=== PATIENT | male | born 1970 | race Caucasian/White ===

== ENCOUNTER → 2016-10-02 | Outpatient (CLI) | payer OTHER ==
[~2016-10-02] MED LIST: ASPIRIN 81M81 MG/TA2 PO; CEPHALEXIN500 M1 PO; EPA FISH OIL1000 MG PO; LIPITOR 80MG80 MG PO; LOPRESSOR100 MG PO; VIIBRYD40 MG PO
== END ==
LOC: COL.PUL 07:29
DX: R06.09 Other forms of dyspnea (principal); F17.200 Nicotine dependence, unspecified, uncomplicated

== ENCOUNTER → 2016-12-15 | Outpatient (CLI) | payer OTHER | LOC: BHSO 13:40 | DX: F41.1 Generalized anxiety disorder (principal) | CPT/HCPCS: 90791-AI ==

== ENCOUNTER → 2017-01-15 | Outpatient (CLI) | payer OTHER | LOC: BHSO 13:02 | DX: F41.1 Generalized anxiety disorder (principal) ==

== ENCOUNTER → 2017-02-11 | Outpatient (CLI) | payer BC | LOC: BHSO 09:52 | DX: F31.73 Bipolar disorder, in partial remission, most recent episode manic (principal) ==

== ENCOUNTER → 2017-03-01 | Outpatient (CLI) | payer BC | LOC: BHSO 10:49 | DX: F41.1 Generalized anxiety disorder (principal) ==

== ENCOUNTER → 2017-03-15 | Outpatient (CLI) | payer BC | LOC: BHSO 10:59 | DX: F41.1 Generalized anxiety disorder (principal) ==

== ENCOUNTER → 2017-04-09 | Outpatient (CLI) | payer BC | LOC: BHSO 09:11 | DX: F41.1 Generalized anxiety disorder (principal) | CPT/HCPCS: G0463 ==

== ENCOUNTER 2017-12-22 08:46 | Outpatient (RCR) | payer OTHER | END 2018-03-22 | disposition home or self-care (01) | LOC: WSOH | DX: S30.1XXA Contusion of abdominal wall, initial encounter (principal); W20.8XXA Other cause of strike by thrown, projected or falling object, initial encounter; Y99.0 Civilian activity done for income or pay; F17.210 Nicotine dependence, cigarettes, uncomplicated; Z79.82 Long term (current) use of aspirin; Z79.899 Other long term (current) drug therapy ==

== ENCOUNTER → 2018-11-04 | Outpatient (CLI) | payer BC | LOC: COL.RAD 10:25 | DX: K11.8 Other diseases of salivary glands (principal) ==

== ENCOUNTER → 2018-11-11 | Outpatient (CLI) | payer BC ==
[~2018-11-11] VITALS: Ht 182.9 cm; Wt 121.4 kg
[~2018-11-11] MED LIST changes: +DULERA1 AR1 IH; +LAMICTAL150 MG PO; +WELLBUTRIN SR200 MG PO
[2018-11-11 08:04] VITALS: BP 141/91; PULSE 68
[2018-11-11 09:25] VITALS: BP 154/105; PULSE 65
[2018-11-11 09:35] VITALS: BP 146/103; PULSE 64
[2018-11-11 09:45] VITALS: BP 153/101; PULSE 63
[2018-11-11 09:55] VITALS: BP 143/95; PULSE 61
== END ==
LOC: COL.RAD 07:46
DX: K11.8 Other diseases of salivary glands (principal)

== ENCOUNTER 2018-12-10 20:45 | Emergency (ER) | payer BC ==
[~2018-12-10] VITALS: Ht 182.9 cm; Wt 122.7 kg
[2018-12-10 21:33] LABS: BASO # 0.1 (0.0-0.2); BASO % 0.9 % (0.0-2.0); EOS # 0.1 (0.0-0.7); EOS % 1.1 % (0-4.0); GRAN # 6.8 (1.4-6.5); GRAN % 56.1 % (42.2-75.2); HEMATOCRIT 41.7 % (42.0-52.0); HEMOGLOBIN 14.2 g/dl (13.5-18.0); LYMPH # 3.8 (1.2-3.4); LYMPH % 31.7 % (20.0-51.0); MEAN CELL VOLUME 91 fl (80.0-100.0); MEAN CORPUSCULAR HEMOGLOBIN 31 pg (27.0-31.0); MEAN CORPUSCULAR HGB CONC 34 g/dl (33.0-37.0); MEAN PLATELET VOLUME 9.5 fl (7.4-10.4); MONO # 1.1 (0.1-0.6); PLATELET COUNT 200 K/mm3 (130-400); RED BLOOD COUNT 4.56 M/mm3 (4.20-5.60); REDCELL DISTRIBUTION WIDTH-CV 12.5 % (11.5-14.5)
[2018-12-10 21:42] LABS: BILIRUBIN,TOTAL 0.2 mg/dL (0.0-1.0); CALCIUM 8.8 mg/dL (8.4-10.2); CREATININE, serum 0.9 (0.66-1.25); POTASSIUM 4.1 mmol/L (3.4-5.0)
[2018-12-10 21:54] VITALS: TEMP 97.8
[2018-12-10 22:42] VITALS: BP 138/90; PULSE 63
== END 2018-12-10 22:44 | disposition home or self-care (01) ==
LOC: COL.ER 20:45
PROVIDERS: Emergency Medicine
DX: R50.82 Postprocedural fever (principal); J44.9 Chronic obstructive pulmonary disease, unspecified; E78.5 Hyperlipidemia, unspecified; I10 Essential (primary) hypertension; F17.210 Nicotine dependence, cigarettes, uncomplicated; Z79.82 Long term (current) use of aspirin
CPT/HCPCS: A4216; J0696; J7040

== ENCOUNTER → 2018-12-27 | Outpatient (CLI) | payer BC | LOC: BHSO 14:51 | DX: F41.1 Generalized anxiety disorder (principal) | CPT/HCPCS: G0463 ==

== ENCOUNTER → 2019-03-29 | Outpatient (CLI) | payer BC | LOC: BHSO 08:13 | DX: F33.41 Major depressive disorder, recurrent, in partial remission (principal) | CPT/HCPCS: G0463 ==

== ENCOUNTER → 2019-09-14 | Outpatient (CLI) | payer BC | LOC: BHSO 07:54 | DX: F33.42 Major depressive disorder, recurrent, in full remission (principal) | CPT/HCPCS: G0463 ==

== ENCOUNTER 2019-10-04 15:15 | Outpatient (RCR) | payer OTHER ==
[2019-10-05] MEDS ORDERED: DESYREL DIVIDO150 M1 PO (21:36)
[2019-10-05] MEDS ORDERED: WELLBUTRIN XL150 MG PO (21:37)
[2019-10-05] MEDS ORDERED: WELLBUTRIN XL300 M1 PO (21:37)
== END 2020-01-02 | disposition home or self-care (01) ==
LOC: WSOH
DX: S61.217A Laceration without foreign body of left little finger without damage to nail, initial encounter (principal); Y99.0 Civilian activity done for income or pay; E78.00 Pure hypercholesterolemia, unspecified; F32.9 Major depressive disorder, single episode, unspecified; I10 Essential (primary) hypertension; G47.00 Insomnia, unspecified; Z98.890 Other specified postprocedural states

== ENCOUNTER 2019-10-05 21:08 | Emergency (ER) | payer BC ==
[~2019-10-05] VITALS: Ht 182.9 cm; Wt 120.5 kg
[2019-10-05 21:16] VITALS: BP 152/96; PULSE 88; TEMP 97.8
[2019-10-05] MEDS ORDERED: DESYREL DIVIDO150 M1 PO (21:36)
[2019-10-05] MEDS ORDERED: WELLBUTRIN XL300 M1 PO (21:37)
[2019-10-05] MEDS ORDERED: WELLBUTRIN XL150 MG PO (21:37)
== END 2019-10-05 22:59 | disposition home or self-care (01) ==
LOC: COL.ER 21:08
DX: S61.211A Laceration without foreign body of left index finger without damage to nail, initial encounter (principal); I10 Essential (primary) hypertension; E78.5 Hyperlipidemia, unspecified; F32.9 Major depressive disorder, single episode, unspecified; Z88.0 Allergy status to penicillin; Z79.82 Long term (current) use of aspirin; W26.8XXA Contact with other sharp object(s), not elsewhere classified, initial encounter

== ENCOUNTER → 2019-10-16 | Outpatient (CLI) | payer BC ==
[~2019-10-16] MED LIST changes: +DESYREL DIVIDO150 M1 PO; +WELLBUTRIN XL150 MG PO; +WELLBUTRIN XL300 M1 PO
[2019-10-16 10:02] VITALS: BP 133/80; PULSE 86; TEMP 97.2
== END ==
LOC: COL.ER 09:40
DX: Z48.02 Encounter for removal of sutures (principal)

== ENCOUNTER 2021-03-25 11:32 | Outpatient (CLI) | payer BC ==
[2021-03-25] VITALS (8 sets, daily range): BP systolic 123–171; BP diastolic 81–97; PULSE 67–77; TEMP 98.2
[~2021-03-25] VITALS: Ht 182.9 cm; Wt 118.0 kg
[~2021-03-25 11:32] MED LIST changes: +LIPITOR 40MG TA40 MG PO; -LIPITOR 80MG80 MG PO
[2021-03-25] MEDS ORDERED: PROVENTIL0.09 MG/A1 IH (11:46)
[2021-03-25] MEDS ORDERED: SINGULAIR 110 MG/TAB PO (11:46)
[2021-03-25] MEDS ORDERED: FLOMAX 0.40.4 MG/CAP PO (11:47)
--- NOTE | 2021-03-25 13:34 | NUR ---
Pt tolerated infusion and 1 hr obs period without issue. INT DC'd with catheter intact. He is escorted out to ED entrance.
== END 2021-03-25 14:30 | disposition home or self-care (01) ==
LOC: EUO 11:32
DX: U07.1 COVID-19 (principal); E66.9 Obesity, unspecified; I51.9 Heart disease, unspecified
CPT/HCPCS: M0245